=== PATIENT | female | born 1960 | race Asian ===

== ENCOUNTER → 2017-12-01 | Outpatient (CLI) | payer BC | LOC: MC.RAD 07:11 | DX: Z12.31 Encounter for screening mammogram for malignant neoplasm of breast (principal) ==

== ENCOUNTER 2019-05-23 08:00 | Outpatient (RCR) | payer BC | END 2019-07-18 13:35 | disposition home or self-care (01) | LOC: WSPT 08:00 | DX: M79.671 Pain in right foot (principal) ==

== ENCOUNTER → 2021-04-06 | Outpatient (CLI) | payer BC | LOC: MC.RAD 07:41 | DX: Z12.31 Encounter for screening mammogram for malignant neoplasm of breast (principal) ==